=== PATIENT | female | born 2000 | race Caucasian/White ===

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

== ENCOUNTER 2022-03-16 10:35 | Emergency (ER) | payer OTHER ==
[~2022-03-16] VITALS: Ht 167.6 cm; Wt 81.7 kg
[~2022-03-16 10:35] MED LIST: NORGESTIMATE-E1 EAC1 PO
[2022-03-16] MEDS ORDERED: ONDANSETRON ODT4 MG PO (11:40)
== END 2022-03-16 11:55 | disposition home or self-care (01) ==
LOC: ED 10:35
DX: J10.1 Influenza due to other identified influenza virus with other respiratory manifestations (principal); F17.200 Nicotine dependence, unspecified, uncomplicated; Z20.822 Contact with and (suspected) exposure to COVID-19
CPT/HCPCS: 87502; 99283; A9270; U0003

== ENCOUNTER 2022-09-15 21:03 | Emergency (ER) | payer OTHER ==
[~2022-09-15] VITALS: Ht 167.6 cm; Wt 83.5 kg
[~2022-09-15 21:03] MED LIST changes: +ONDANSETRON ODT4 MG PO
[2022-09-16 01:20] VITALS: BP 116/90
== END 2022-09-16 01:20 | disposition home or self-care (01) ==
LOC: ED 21:03
DX: R10.32 Left lower quadrant pain (principal); F17.200 Nicotine dependence, unspecified, uncomplicated
CPT/HCPCS: 36415; 76830; 76856; 80053; 81001; 83690; 84703; 85025; 96374; 99284-25; J1885